=== PATIENT | male | born 1960 ===

== ENCOUNTER 2018-09-17 08:20 | Emergency (ER) | payer MEDICAID ==
[2018-09-17 08:31] VITALS: BP 135/87; PULSE 83; O2SAT 98; BMI 30.7
[2018-09-17 08:37] VITALS: RESP 18; TEMP 97
--- NOTE | 2018-09-17 08:53 | ED PDOC ---
HPI: Skin/Bite Injury Time Seen by Provider: 09/17/18 08:21 Chief Complaint (Nursing): Abnormal Skin Integrity History Per: Patient Onset/Duration Of Symptoms: Days (3) Current Symptoms Are (Timing): Still Present Location Of Injury: Left: Abdomen, Leg Severity: Mild Additional Complaint(s): Recurrent skin infections. Recently admitted to [place] with cellulitis left buttock and ak'ed with PO Bactrim. Has noted recurrent pustules left thigh and left flank. Denies fever or chills. Past Medical History Vital Signs: Last Vital Signs Temp 97.0 F L 09/17/18 08:34 Pulse 83 09/17/18 08:34 Resp 18 09/17/18 08:34 BP 135/87 09/17/18 08:34 Pulse Ox 98 09/17/18 08:34 - Medical History PMH: Gastritis, HTN, Hypercholesterolemia Denies: Colonic Polyps, Fractures - Family History Family History: States: Unknown Family Hx - Home Medications Home Medications: Ambulatory Orders Medication Instructions Recorded Atenolol/Chlorthalidone 1 tab PO DAILY 10/04/16 [Atenolol/Chlorthalidone 50 mg-25 mg] Clindamycin [Cleocin] 300 mg PO TID #30 cap 09/17/18 - Allergies Allergies/Adverse Reactions: Allergies Allergy/AdvReac Type Severity Reaction Status Date / Time No Known Allergies Allergy Verified 10/04/16 07:57 Review of Systems ROS Statement: Except As Marked, All Systems Reviewed And Found Negative Constitutional: Negative for: Fever Skin: Positive for: Other (Pustules) Physical Exam - Reviewed Nursing Documentation Reviewed: Yes Vital Signs Reviewed: Yes - Physical Exam Appears: Positive for: Non-toxic, No Acute Distress Head Exam: Positive for: ATRAUMATIC, NORMAL INSPECTION, NORMOCEPHALIC Skin: Positive for: Warm, Rash (Pustules left medial thigh amd left flank. No fluctuance or tenderness. Minimal surrounding erythema.) Eye Exam: Positive for: EOMI, Normal appearance, PERRL ENT: Positive for: Normal ENT Inspection Neck: Positive for: Normal, Painless ROM Cardiovascular/Chest: Positive for: Regular Rate, Rhythm Respiratory: Positive for: CNT, Normal Breath Sounds Gastrointestinal/Abdominal: Positive for: Normal Exam, Soft Back: Positive for: Normal Inspection Extremity: Positive for: Normal ROM Neurologic/Psych: Positive for: Alert, Oriented - Laboratory Results Result Diagrams: 09/17/18 09:07 09/17/18 09:07 - ECG O2 Sat by Pulse Oximetry: 98 Disposition - Clinical Impression Clinical Impression: Furuncle - Patient ED Disposition Is Patient to be Admitted: No Counseled Patient/Family Regarding: Studies Performed, Diagnosis, Need For Followup, Rx Given - Disposition Referrals: [facility] [Outside] Disposition: Routine/Home Disposition Time: 09:36 Condition: FAIR Prescriptions: Clindamycin [Cleocin] 300 mg PO TID #30 cap Instructions: Boil Forms: [employer] (Hebrew)
[2018-09-17 09:15] LABS: BASO # 0.1 K/uL (0.0-0.2); BASO % 0.9 % (0.0-2.0); EOS # 0.3 K/uL (0.0-0.7); EOS % 3.5 % (0.0-4.0); HEMOGLOBIN 17.1 g/dL (12.0-18.0); LYMPH % 20.5 % (20.0-40.0); MEAN CELL VOLUME 83.8 fl (80.0-94.0); MEAN CORPUSCULAR HEMOGLOBIN 28.4 pg (27.0-31.0); MEAN CORPUSCULAR HGB CONC 33.9 g/dL (33.0-37.0); MEAN PLATELET VOLUME 7.6 fl (7.2-11.7); MONO % 10.5 % (0.0-10.0); NEUT # 6.2 K/uL (1.8-7.0); NEUT % 64.6 % (50.0-75.0); NRBC % 0.1 % (0.0-0.0); RBC 6.01 Mil/uL (4.40-5.90); RED CELL DISTRIBUTION WIDTH 14.7 % (11.5-14.5); WHITE BLOOD COUNT 9.6 K/uL (4.8-10.8)
[2018-09-17 09:28] LABS: ALB/GLOB RATIO 1.1 (1.0-2.1); ALT/SGPT 34 U/L (21-72); AST/SGOT 22 U/L (17-59); BLOOD UREA NITROGEN 17 mg/dl (9-20); CALCIUM 9.2 mg/dL (8.4-10.2); GFR NON-AFRICAN AMERICAN > 60
== END 2018-09-17 09:46 | disposition home or self-care (01) ==
LOC: H.ER 08:20
DX: L02.32 Furuncle of buttock (principal); I10 Essential (primary) hypertension; E78.00 Pure hypercholesterolemia, unspecified; Z79.899 Other long term (current) drug therapy

== ENCOUNTER 2018-12-05 09:50 | Emergency (ER) | payer MEDICAID ==
[2018-12-05 10:00] VITALS: BMI 26.6
[2018-12-05 10:01] VITALS: BP 157/75; PULSE 93; RESP 20; TEMP 97.8; O2SAT 97
--- NOTE | 2018-12-05 10:48 | ED PDOC ---
HPI: General Adult Time Seen by Provider: 12/05/18 10:16 Chief Complaint (Nursing): ENT Problem Chief Complaint (Provider): skin infection History Per: Patient Additional Complaint(s): 58 y/o male presents with drainage and redness to right nares x 1 week. Patient states that he started taking an [id number] antibiotic that he obtained from [facility] [place] about 5 days ago, but this has not helped. He does not of the name of the antibiotic. He denies fever or chills. He states Tylenol has been providing good relief of pain. PMD: Dr. Guero Ordaz Past Medical History Reviewed: Historical Data, Nursing Documentation, Vital Signs Vital Signs: Last Vital Signs Temp 97.8 F 12/05/18 10:00 Pulse 93 H 12/05/18 10:00 Resp 20 12/05/18 10:00 BP 157/75 H 12/05/18 10:00 Pulse Ox 97 12/05/18 10:00 - Medical History PMH: Gastritis, HTN, Hypercholesterolemia, Hyperlipidemia - Surgical History Surgical History: No Surg Hx - Family History Family History: States: No Known Family Hx - Living Arrangements Living Arrangements: With Family - Social History Current smoker - smoking cessation education provided: No Alcohol: None Drugs: Denies - Home Medications Home Medications: Ambulatory Orders Medication Instructions Recorded Atenolol/Chlorthalidone 1 tab PO DAILY 10/04/16 [Atenolol/Chlorthalidone 50 mg-25 mg] Clindamycin [Cleocin] 300 mg PO TID #30 cap 09/17/18 Clindamycin [Cleocin] 300 mg PO QID #28 cap 12/05/18 Ibuprofen [Motrin Tab] 800 mg PO Q8 PRN #20 tab 12/05/18 - Allergies Allergies/Adverse Reactions: Allergies Allergy/AdvReac Type Severity Reaction Status Date / Time No Known Allergies Allergy Verified 10/04/16 07:57 Review of Systems ROS Statement: Except As Marked, All Systems Reviewed And Found Negative Constitutional: Negative for: Fever, Chills ENT: Positive for: Other (skin infection to right nares) Physical Exam - Reviewed Nursing Documentation Reviewed: Yes Vital Signs Reviewed: Yes - Physical Exam Appears: Positive for: Well, Non-toxic, No Acute Distress Skin: Positive for: Normal Color. Negative for: Rash Eye Exam: Positive for: Normal appearance ENT: Positive for: Other (actively draining abscess noted to distal aspect of right nares with localized erythema, minimal tenderness to palpation, no epistaxis, nares are patent bilaterally, no diffuse facial cellulitis) Neurologic/Psych: Positive for: Alert, Oriented - ECG O2 Sat by Pulse Oximetry: 97 Pulse Ox Interpretation: Normal Medical Decision Making Medical Decision Making: Impression: draining abscess and cellulitis of right nares Plan: Rx clindamycin and motrin Advised warm compresses with epsom salts to affected area. ENT referral provided for follow up. Disposition - Clinical Impression Clinical Impression: Abscess or cellulitis of nose, external - Patient ED Disposition Is Patient to be Admitted: No Counseled Patient/Family Regarding: Diagnosis, Need For Followup, Rx Given - Disposition Referrals: Pablo Ibrahim MD [Staff Provider] - Disposition: Routine/Home Disposition Time: 10:52 Condition: STABLE Additional Instructions: Take prescription meds as directed. Apply warm compresses with Epsom salts to affected area. Follow up with ear, nose and throat specialist in 2-3 days. Prescriptions: Clindamycin [Cleocin] 300 mg PO QID #28 cap Ibuprofen [Motrin Tab] 800 mg PO Q8 PRN #20 tab PRN Reason: Pain, Moderate (4-7) Instructions: Cellulitis (Skin Infection), Adult (DC), Skin Abscess
== END 2018-12-05 11:13 | disposition home or self-care (01) ==
LOC: H.ER 09:50
DX: J34.0 Abscess, furuncle and carbuncle of nose (principal)